=== PATIENT | male | born 1975 | race Caucasian/White ===

== ENCOUNTER 2017-04-26 14:06 | Outpatient (CLI) | payer OTHER ==
--- NOTE | 2017-04-26 15:16 | MRI Preliminary Report ---
Exam: MRI Knee RT W/O IMPRESSION: Calcific enthesopathy of the patellar tendon. [facility] MUSCULOSKELET[facility] SECTION SITE ID: [id number]
--- NOTE | 2017-04-26 16:16 | MRI Report ---
EXAM: RIGHT KNEE MRI WITHOUT CONTRAST EXAM DATE: 04/26/2017 02:46 PM. CLINICAL HISTORY: Right knee pain for 10 months. Popping, clicking, and swelling. COMPARISON: None. TECHNIQUE: Multiplanar, multisequence T1-weighted and fluid-sensitive sequences of the knee without c ontrast. Other: None. FINDINGS: Bones: No fractures or subluxations. No marrow edema. No bone lesions. Articular Cartilage: Unremarkable. Medial Meniscus: The medial meniscus is intact. Note that some artifact overlies the medial meniscal body on the coronal T2 fat-suppressed sequence. Lateral Meniscus: The lateral meniscus is intact. Cruciate Ligaments: The anterior and posterior cruciate ligaments are intact. Collateral Ligaments: The medial collateral and lateral collateral ligamentous structures are intact. Tendons: The quadriceps, semimembranosus, and popliteus tendons are unremarkable. There is calcific e nthesopathy of the proximal patellar tendon. Musculature: No edema or fatty atrophy. Other: No effusion. No popliteal cyst. No loose bodies. The medial and lateral retinacula are intact . Prepatellar subcutaneous edema is present. IMPRESSION: Calcific enthesopathy of the patellar tendon. [facility]CULOSKELET[facility] RADIOLOG[facility] SECTION Referring Provider Line: [phone] SITE ID: [id number]
== END 2017-04-26 14:07 | disposition home or self-care (01) ==
LOC: DI 14:06
PROVIDERS: ATTEND Physician Assistant
DX: M76.891 Other specified enthesopathies of right lower limb, excluding foot (principal)

== ENCOUNTER 2018-03-16 13:33 | Outpatient (CLI) | payer OTHER ==
--- NOTE | 2018-03-16 14:17 | XRAY Report ---
Procedure Date: 03/16/2018 Accession Number: [id number] / [id number] Procedure: XRN - Foot 3 View LT CPT Code: FULL RESULT: EXAM: LEFT FOOT RADIOGRAPHY EXAM DATE: 03/16/2018 01:53 PM. CLINICAL HISTORY: Left ankle pain. COMPARISON: None. TECHNIQUE: 3 views. FINDINGS: Bones: Mild inferior calcaneal spurring. No fracture. No dislocation. Joints: Normal. No subluxations. Soft Tissues: There is dorsal soft tissue swelling. IMPRESSION: Soft tissue swelling along the dorsal aspect of the foot. [facility]
== END 2018-03-16 13:34 | disposition home or self-care (01) ==
LOC: DI.N 13:33
PROVIDERS: ATTEND Family Medicine
DX: M25.572 Pain in left ankle and joints of left foot (principal)

== ENCOUNTER 2020-07-16 07:00 | Outpatient (CLI) | payer OTHER | END 2020-07-16 23:59 | disposition home or self-care (01) | LOC: COV 07:00 | PROVIDERS: ATTEND Family Medicine | DX: U07.1 COVID-19 (principal) ==

== ENCOUNTER 2021-04-22 11:54 | Outpatient (CLI) | payer OTHER ==
--- NOTE | 2021-04-22 12:55 | XRAY Report ---
PROCEDURE: Ankle 3 View RT INDICATIONS: R HEEL PX TECHNIQUE: 3 weightbearing views of the ankle were acquired. COMPARISON: 03/16/2018 FINDINGS: Bones: No acute fractures or dislocations. There are plantar calcaneal and retrocalcaneal enthesoph ytes. These have increased slightly in size compared to previous foot radiographic series. Ankle mort ise is normally aligned. No suspicious bony lesions. Soft tissues: No tibiotalar joint effusion. Achilles tendon appears normal. IMPRESSION: Right ankle without acute fracture or dislocation. Plantar calcaneal and retrocalcaneal enthesopathy. Reviewed by: Justin Reyes MD on 04/22/2021 12:54 PM PDT Approved by: Justin Reyes MD on 04/22/2021 12:54 PM PDT Station ID: [id number]
== END 2021-04-22 23:59 | disposition home or self-care (01) ==
LOC: DI.N 11:54
PROVIDERS: ATTEND Family Medicine
DX: M77.31 Calcaneal spur, right foot (principal)